=== PATIENT | female | born 1995 | race Two or more races ===

== ENCOUNTER 2018-10-31 14:30 | Inpatient (IN) | payer OTHER ==
[2018-11-08] MEDS ORDERED: IRON PO (06:41)
[2018-11-08] MEDS ORDERED: FOLIC ACID1 MG PO (06:41)
[2018-11-08] MEDS ORDERED: PRENATAL TABLE1 EAC1 PO (06:41)
== END 2018-11-10 15:07 | DRG 788 ==
LOC: LDR 11-05 14:30 → OB/GYN 11-08 08:55 → LDR 11-08 08:55 → OB/GYN 11-08 19:03
PROVIDERS: ADMIT Obstetrics & Gynecology
PROC: 4A1HXCZ Monitoring of Products of Conception, Cardiac Rate, External Approach (ICD-10-PCS; 2018-11-08)
PROC: 10D00Z1 Extraction of Products of Conception, Low, Open Approach (ICD-10-PCS; principal; 2018-11-08 15:00)
DX: O62.1 Secondary uterine inertia (principal); Z3A.39 39 weeks gestation of pregnancy; Z37.0 Single live birth

== ENCOUNTER 2018-11-08 05:22 | Outpatient (CLI) | payer OTHER ==
[2018-11-08] MEDS ORDERED: FOLIC ACID1 MG PO (06:41)
[2018-11-08] MEDS ORDERED: IRON PO (06:41)
[2018-11-08] MEDS ORDERED: PRENATAL TABLE1 EAC1 PO (06:41)
== END 2018-11-08 08:54 | disposition still patient (30) ==
LOC: OBS/DEL 05:22
DX: O47.1 False labor at or after 37 completed weeks of gestation (principal); Z34.03 Encounter for supervision of normal first pregnancy, third trimester